=== PATIENT | female | born 1990 | race Hispanic/Latino ===

== ENCOUNTER 2016-10-16 19:03 | Emergency (ER) | payer OTHER ==
[2016-10-16 19:16] VITALS: O2SAT 98
[2016-10-16] MEDS ORDERED: Sodium Chloride 0.9% 1,000 ML IV ONE (19:23)
--- NOTE | 2016-10-16 19:23 | C.PDOC ---
History Of Present Illness A 25 y/o female who is 2AB and 6 weeks , c/o of vaginal spotting since this morning. Pt denies fever, chills, nausea, vomiting, diarrhea, , hematuria, dysuria, constipation, or any other complaints. Time Seen by Provider: 10/16/16 19:23 Chief Complaint (Nursing): Abdominal Pain History Per: Patient History/Exam Limitations: no limitations Onset/Duration Of Symptoms: Hrs Current Symptoms Are (Timing): Still Present Severity: Moderate Pain Scale Rating Of: 3 Location Of Pain/Discomfort: Suprapubic Radiation Of Pain To:: None Quality Of Discomfort: Dull, Cramping Associated Symptoms: denies: Fever, Chills, Nausea Exacerbating Factors: None Alleviating Factors: None Last Bowel Movement: Today Recent travel outside of the [place]: No Additional History Per: Patient Abnormal Vaginal Bleeding: Yes : 4 Para: 1 Miscarriage: 2 (AB) Past Medical History Reviewed: Historical Data, Nursing Documentation, Vital Signs Vital Signs: Last Vital Signs Temp 98.7 F 10/16/16 19:10 Pulse 99 H 10/16/16 19:10 Resp 16 10/16/16 19:10 BP 133/82 10/16/16 19:10 Pulse Ox 98 10/16/16 20:11 - Medical History PMH: Anxiety, Asthma Family History: States: No Known Family Hx - Social History Hx Alcohol Use: No Hx Substance Use: No - Immunization History Hx Tetanus Toxoid Vaccination: Yes Hx Influenza Vaccination: Yes Hx Pneumococcal Vaccination: Yes Review Of Systems Constitutional: Negative for: Fever, Chills Cardiovascular: Negative for: Chest Pain, Palpitations Respiratory: Negative for: Shortness of Breath Gastrointestinal: Negative for: Nausea, Vomiting, Diarrhea, Constipation Genitourinary: Positive for: Vaginal Bleeding. Negative for: Dysuria, Hematuria , Vaginal Discharge Musculoskeletal: Negative for: Back Pain Skin: Negative for: Rash Neurological: Negative for: Weakness Psych: Negative for: Anxiety Physical Exam - Physical Exam Appears: Non-toxic, No Acute Distress Skin: Warm, Dry Oral Mucosa: Moist Chest: Symmetrical Cardiovascular: Rhythm Regular Respiratory: No Rales, No Rhonchi, No Wheezing Gastrointestinal/Abdominal: Soft, Tenderness (suprapubic), No Guarding, No Rebound, Other (Suprapubic cramping) Back: Normal Inspection Extremity: Normal ROM Extremity: Bilateral: Atraumatic Neurological/Psych: Oriented x3, Normal Speech, Normal Cognition Gait: Steady ED Course And Treatment - Laboratory Results Result Diagrams: 10/16/16 19:46 10/16/16 19:46 O2 Sat by Pulse Oximetry: 98 (RA) Pulse Ox Interpretation: Normal Reevaluation Time: 22:50 Reassessment Condition: Improved Medical Decision Making Medical Decision Making: Upon provider reevaluation patient is feeling better, is medically stable, and requires no further treatment in the ED at this time. Patient will be discharged home. Counseling was provided and all questions were answered regarding diagnosis and need for follow up with the referred clinic. There is agreement to discharge plan. Return if symptoms persist or worsen. Disposition Counseled Patient/Family Regarding: Studies Performed, Diagnosis, Need For Followup - Disposition Referrals: [facility] [Outside] [facility] [Outside] Disposition: HOME/ ROUTINE Disposition Time: 19:23 Condition: FAIR Instructions: Threatened Miscarriage (ED) - Clinical Impression Clinical Impression: Threatened - Scribe Statement The provider has reviewed the documentation as recorded by the Scribe Tejas castellon All medical record entries made by the Scribe were at my direction and personally dictated by me. I have reviewed the chart and agree that the record accurately reflects my personal performance of the history, physical exam, medical decision making, and the department course for this patient. I have also personally directed, reviewed, and agree with the discharge instructions and disposition.
[2016-10-16 19:48] LABS: BASO # 0.1 K/uL (0.0-0.2); BASO % 0.7 % (0.0-2.0); EOS # 0.5 K/uL (0.0-0.7); EOS % 3.6 % (0.0-4.0); HEMATOCRIT 39.6 % (34.0-47.0); LYMPH # 2.5 K/uL (1.0-4.3); LYMPH % 19.2 % (20.0-40.0); MEAN CELL VOLUME 85.4 fL (81.0-99.0); MEAN CORPUSCULAR HEMOGLOBIN 27.6 pg (27.0-31.0); MEAN CORPUSCULAR HGB CONC 32.3 g/dL (33.0-37.0); MEAN PLATELET VOLUME 8.9 fL (7.2-11.7); MONO % 7.3 % (0.0-10.0); RED CELL DISTRIBUTION WIDTH 14.1 % (11.5-14.5)
[2016-10-16] MEDS ORDERED: Sodium Chloride 0.9% 1,000 ML ONE (19:48)
[2016-10-16 19:59] LABS: CHLORIDE 103 mmol/L (98-107); POTASSIUM 3.4 mmol/L (3.6-5.2); SODIUM 138 mmol/L (132-148)
[2016-10-16 20:00] LABS: URINE BACTERIA RARE (<OCC); URINE BILIRUBIN NEGATIVE (NEGATIVE); URINE BLOOD NEGATIVE (NEGATIVE); URINE COLOR Yellow (YELLOW); URINE GLUCOSE (UA) NORMAL (Normal); URINE KETONE NEGATIVE (NEGATIVE); URINE LEUKOCYTE ESTERASE NEGATIVE Leu/uL (Negative); URINE PROTEIN NEGATIVE (NEGATIVE); URINE UROBILINOGEN NORMAL mg/dL (0.2-1.0); WBC URINE 2 /hpf (0-5)
[2016-10-16 20:02] LABS: ALB/GLOB RATIO 1.5 (1.0-2.1); ALKALINE PHOSPHATASE 72 U/L (38-126); ALT/SGPT 33 U/L (9-52); AST/SGOT 25 U/L (14-36); BILIRUBIN,TOTAL 0.3 mg/dL (0.2-1.3); BLOOD UREA NITROGEN 7 mg/dL (7-17); CARBON DIOXIDE 21 mmol/L (22-30); GFR AFRICAN-AMERICAN > 60; GLUCOSE,RANDOM 115 mg/dL (65-105); TOTAL PROTEIN 7.1 g/dL (6.3-8.3)
[2016-10-16 20:03] LABS: CALCIUM 8.7 mg/dl (8.6-10.4)
[2016-10-16 22:56] VITALS: RESP 18
[2016-10-16 23:37] VITALS: BP 110/70; PULSE 84; TEMP 96.7
--- NOTE | 2016-10-17 08:06 | US ---
Pelvic ultrasound History: . Vaginal bleeding. Comparison: None available. Technique: Real-time sonography was performed through the pelvis utilizing transabdominal and transvaginal techniques. Findings: LMP of 09/02/2016. Uterus: 8.4 x 4.8 x 5.8 centimeters. Heterogeneous echotexture. Anteverted. Cervix measures 3.1 centimeters. Intrauterine with intrauterine gestational sac measuring 1.3 centimeters corresponding to a gestational age of 5 weeks and 4 days. Yolk sac identified. Sartell-rump length measures 2.3 millimeters corresponding to a gestational age of 5 weeks and 5 days. heart rate of 104 beats per minute. No free fluid in the pelvic cul-de-sac. Right ovary: Not well visualized. Left ovary: 3.6 x 2.3 x 3.1 centimeters. Normal flow. Heterogeneous cyst measuring 2.1 x 1.3 x 1.7 centimeters. Impression: Viable intrauterine corresponding to a gestational age of 5 weeks and 5 days with crown-rump length of 2.3 millimeters. heart rate of 104 beats per minute. 2.1 centimeter left ovarian cyst. Right ovary not well visualized. Limited 1st trimester ultrasound for viability purposes only. Continued interval followup with serial ultrasound, serial HCG levels, and gynecological consultation would be helpful if clinically indicated. These findings were preliminarily reported at 10:44 p.m. on 10/16/[address] Candelaria Osorio from [facility].
== END 2016-10-16 23:34 | disposition home or self-care (01) ==
LOC: C.ER 19:03
DX: O20.0 Threatened abortion (principal); Z3A.01 Less than 8 weeks gestation of pregnancy
CPT/HCPCS: 76805; 76817; 80053; 81001; 84702; 84703; 85025; 86850; 86900; 96360; 99285; J7040